=== PATIENT | male | born 1960 | race Caucasian/White ===

== ENCOUNTER 2024-01-17 05:42 | Inpatient (IN) | payer MEDICARE, OTHER ==
[~2024-01-17 05:42] MED LIST: TRANEXAMIC 1,000 MG/100ML-NACL 1,000 MG in SALINE 1 100ML.BAG IVPB PRN
[2024-01-17 06:45] LABS: Glucose,Whole Blood 118 mg/dL (70-110)
[2024-01-17] MEDS: DEXAMETHASONE SOD PHOSPHATE 4 MG/ML 1 ML VIAL IV ONE (06:54)
[2024-01-17] MEDS: MELOXICAM 7.5 MG TAB PO PRN (06:54)
[2024-01-17] MEDS: ONDANSETRON 4 MG/2 ML VIAL IVP ONE (06:54)
[2024-01-17] MEDS: LACTATED RINGERS 1,000 ML IV ONE ×3 (06:54→09:21)
[2024-01-17] MEDS: ACETAMINOPHEN TAB 500 MG TAB PO PRN (06:54)
[2024-01-17] MEDS: MIDAZOLAM 2 MG/2 ML VIAL IVP ONE (06:59)
[2024-01-17] MEDS ORDERED: HYDROmorphone 0.5 MG/0.5 ML SYRINGE IVP PRN ×2 (07:00→09:14)
[2024-01-17 07:18] LABS: INR 0.9 (<1.2); Partial Thromboplastin Time 22.2 sec (22.0-30.0); Prothrombin Time 10.2 sec (10.0-12.5)
[2024-01-17] MEDS ORDERED: PROPOFOL 10 MG/ML 20 ML VIAL IV ONE (07:22)
[2024-01-17] MEDS ORDERED: TRANEXAMIC 1,000 MG/100ML-NACL PREMIX BAG ONE (07:22)
[2024-01-17] MEDS ORDERED: ROPIVACAINE 5 MG/ML 30 ML VIAL ONE (07:22)
[2024-01-17] MEDS ORDERED: fentaNYL (PF) 50 MCG/ML 2 ML AMP ONE (07:22)
[2024-01-17] MEDS ORDERED: MIDAZOLAM 2 MG/2 ML VIAL ONE (07:22)
[2024-01-17] MEDS ORDERED: DEXAMETHASONE SOD PHOSPHATE 4 MG/ML 1 ML VIAL ONE (07:22)
[2024-01-17] MEDS: ceFAZolin 3 GM in SODIUM CHLORIDE 0.9% 100 ML IVPB PRN (07:26)
--- NOTE | 2024-01-17 07:47 | HP ---
HISTORY AND PHYSICAL ANTICIPATED DATE OF SURGERY: 01/17/2024. HISTORY OF PRESENT ILLNESS: Julio Daniel is a 63-year-old gentleman, seen with symptomatic left knee osteoarthritis. After having treatment options discussed, he elected to proceed with left total knee arthroplasty. Consent regarding the procedure was obtained. Preoperative cardiac clearance was provided. PAST MEDICAL HISTORY: Cardiovascular disease, hypertension, ewz-svpwoow-sqdiknskg diabetes. SURGICAL HISTORY: Appendectomy, cholecystectomy, herniorrhaphy. DAILY MEDICATIONS: Unknown. ALLERGIES: None. SOCIAL HISTORY: The patient denies current tobacco use. PHYSICAL EVALUATION OF THE LEFT KNEE: Range of motion is -3 to 100 degrees. Tenderness along the medial joint line. Crepitance along the medial patellofemoral compartments with range of motion. Pain with patellofemoral compression. Collateral ligaments are stable. Hip rotation is without pain. Distal neurovascular exam is intact. IMAGING STUDIES: Radiographs of the left knee revealed severe osteoarthritic changes. IMPRESSION: 1. Left knee osteoarthritis. 2. Hypertension. 3. Hyperlipidemia. 4. Ytz-mpfsmxk-ghlfymfmk diabetes. PLAN: Left total knee arthroplasty. MMODL / IJN: [id number] /
[2024-01-17] MEDS: ceFAZolin 1,000 MG in SODIUM CHLORIDE 0.9% 1,000 ML IRRIGATION ONE (07:54)
[2024-01-17] MEDS ORDERED: ONDANSETRON 4 MG/2 ML VIAL IVP PRN (09:14)
[2024-01-17] MEDS ORDERED: HYDROcodone/APAP 5-325MG 1 EACH TAB PO PRN (09:14)
[2024-01-17] MEDS ORDERED: NALOXONE 0.4 MG/ML 1 ML VIAL IV PRN (09:14)
--- NOTE | 2024-01-17 09:14 | P.OP ---
Date of Procedure: 01/17/24 Preoperative Diagnosis: Left knee osteoarthritis Postoperative Diagnosis: Left knee osteoarthritis Procedure(s) Performed: Left total knee arthroplasty Implants: 1. DePuy attune size 6 left cruciate retaining cemented femur 2. DePuy attune size 5 fixed-bearing cemented tibial baseplate 3. DePuy attune size 6 fixed-bearing cruciate retaining 5 mm polyethylene tibial insert 4. DePuy attune 38 mm all polyethylene cemented patella Anesthesia: regional (Adductor canal catheter, iPAQ block), spinal Surgeon: Vance Weinstein Higher Level Teaching Assistant #1: Seth Sanchez Estimated Blood Loss (ml): 40 Pathology: none sent Condition: stable Disposition: PACU Indications for Procedure: 63-year-old gentleman seen with symptomatic left knee osteoarthritis. After having treatment options discussed, he elected to proceed with total knee art hroplasty. Operative Findings: See description of procedure Description of Procedure: Patient was taken to the operative suite after having an adductor canal catheter placed by the department of anesthesia. Patient underwent a spinal anesthetic by the department of anesthesia. Patient was given preoperative IV intake antibiotics and TXA. A well-padded tourniquet was placed about the left lower extremity. The lower extremity was then prepped and draped in the normal sterile orthopedic fashion. The extremity was elevated, a tourniquet was insufflated to 300. A standard anterior incision was made sharply through skin. Dissection was taken down through the subcutaneous soft tissues down to the extensor mechanism. A medial arthrotomy was performed, patella was everted and knee was flexed. There was advanced osteoarthritis noted. I introduced my distal intramedullary femoral drill. I then introduced the distal femoral cutting jig. Gt JESSICA secured the cutting jig with 2 pins. I held retractors in position while Gt JESSICA performed the distal femoral resection through the guide area we now removed her distal femoral cutting guide. We now placed our 4-in-1 femoral cutting block and positioned and it was secured with 2 pins by Gt JESSICA while I held the block in position. The distal femoral finishing was now completed. A proximal tibial cutting guide was positioned. I held the guide in the appropriate position with both hands well Gt JESSICA inserted stabilizing pins into the guide. Proximal tibial cut was made. We now placed a trial femoral component into position, along with an appropriate size tibial tray and insert. We now took the knee through range of motion and had full extension good flexion and good overall soft tissue balance noted. The patella was everted and stabilized with 2 towel clips held by Gt JESSCIA while I performed a flush with patellar quad tendon utilizing a fresh sawblade. We templated the patella, appropriate drill holes were made. An appropriate trial patella was positioned, knee was taken through full range of motion with the patella tracking very nicely. The trial patella was removed. Drill holes were made through the femoral component. All trial components were removed after marking off the appropriate rotation of the tibia. Retractors we re now positioned along the proximal tibia. An appropriate keel punch was made with the appropriate size tibial guide by myself on Gt JESSICA assisted by holding retractors. At this point appropriate size implants were chosen and opened. The joint was irrigated copiously with pulse lavage mechanical irrigation. The wound was irrigated with pulse lavage mechanical irrigation. We mixed antibiotic methylmethacrylate. We placed the knee into flexion. We placed multiple retractors assisted by Gt JESSICA to expose the proximal tibia. Once the methyl methacrylate was ready, the tibial component was cemented into place removing any excess methylmethacrylate form by both myself and Gt JESSICA. The femoral component was cemented into place removing the removing any excess methylmethacrylate performed by both myself and Gt JESSICA. We then inserted the appropriate size polyethylene tibial insert. We made sure that it was locked into position. We took the knee into full extension, and then back in a flexion making sure we had removed any excess methylmethacrylate. The patellar component was then cemented down and secured with clamp. Excess methylmethacrylate removed. We kept the knee in full extension, patellar clamp in position until methylmethacrylate had hardened. Once it had hardened the patellar clamp was removed. The knee was taken through full range of motion. The patella tracked nicely. There was good soft tissue balancing. The tourniquet was now released. Additional hemostasis was achieved via electrocautery. A second gram of TXA was given. The wound again was irrigated with pulse lavage mechanical irrigation. The extensor mechanism was repaired with Ethibond suture. We checked the repair with range of motion and it was stable. The subcutaneous soft tissues were repaired with Vicryl in layers. The skin was approximated with pernio/Dermabond. Sterile dressings were applied followed by loose web roll and William bandage. The patient was transferred to a bed, and taken to recovery in stable and satisfactory condition. Gt JESSICA assisted with this complex procedure.
[2024-01-17] MEDS: ROPIVACAINE 1,100 MG, SODIUM CHLORIDE 0.9% 500 ML 330 ML, EMPTY PAIN BALL 1 EACH MISCELLANE PRN (10:03)
[2024-01-17 10:16] LABS: Glucose,Whole Blood 146 mg/dL (70-110)
--- NOTE | 2024-01-17 10:29 | XR ---
EXAMINATION TYPE: XR knee limited LT DATE OF EXAM: 01/17/2024 10:23 AM CLINICAL INDICATION:Male, 63 years old with history of Evaluation for Postop abnormality and alignmen t COMPARISON: None. TECHNIQUE: XR knee limited LT; examined in Frontal, lateral projections. FINDINGS: Status post total knee arthroplasty changes with hardware in appropriate alignment and in tact. No evidence of fracture. Subcutaneous lucencies and lucencies within the joint consistent with surgical changes. IMPRESSION: Status post total knee arthroplasty changes with hardware intact and appropriate alignment. No fractu res identified.
[2024-01-17] MEDS ORDERED: ALBUTEROL NEBULIZED 2.5 MG/3 ML INHALATION PRN (12:17)
[2024-01-17] MEDS ORDERED: DEXTROSE 50% SYRINGE 50 ML IVP PRN ×2 (12:18)
[2024-01-17] MEDS: HYDROcodone/APAP 7.5-325MG 1 EACH TAB PO PRN (12:25)
[2024-01-17] MEDS: HYDROmorphone 0.5 MG/0.5 ML SYRINGE IVP PRN (13:32)
[2024-01-17] MEDS: INSULIN ASPART (NovoLOG) 100 UNIT/ML VIAL SQ SCH (13:47)
[2024-01-17] MEDS: LACTATED RINGERS 1,000 ML IV SCH ×2 (13:47→15:49)
--- NOTE | 2024-01-17 14:31 | P.CONS ---
History of Present Illness - Reason for Consult Consult date: 01/17/24 - History of Present Illness Patient is a 63-year-old male with history of hypertension, dyslipidemia, depression, type 2 diabetes presenting for elective left knee arthroplasty. [facility] physicians has been consulted for medical management. Patient currently denies any chest pain, shortness of breath, abdominal pain, nausea, vomiting, urinary or bowel complaints. Pertinent positives and negatives as discussed in HPI, a complete review of systems was performed and all other systems are negative. Patient seen and examined at bedside. Vital signs reviewed General: nontoxic, no distress, appears at stated age, morbidly obese Derm: warm, dry, left knee dressing clean, dry, intact Head: atraumatic, normocephalic, symmetric Eyes: EOMI, no lid lag, anicteric sclera, pupils equal round reactive to light ENT: Nose and ears atraumatic Neck: No thyromegaly, supple Mouth: no lip lesion, mucus membranes moist Cardiovascular: S1S2 reg, no murmur, no edema Lungs: clear to auscultation bilateral, no rhonchi, no rales, no wheeze, no accessory muscle use Abdominal: soft, nontender to palpation, no guarding, no appreciable organomegaly Ext: no gross muscle atrophy, muscle strength muscle strength 5 out of 5 in all 4 extremities, no contractures Neuro: CN II-XII grossly intact Psych: Alert, oriented, appropriate affect Assessment/Plan: Hypertension-continue home metoprolol 50 mg daily, valsartan 320 mg daily Dyslipidemia-continue home atorvastatin 20 mg nightly Depression-continue home Lexapro 20 mg daily, Abilify 2 mg nightly, Lamictal 150 twice daily Status post left total knee arthroplasty -Pain control with oral [place] as needed, IV Dilaudid as needed, ropivacaine for breakthrough pain as needed, monitor for sedation -Lovenox 30 mg SQ every 12 hours for DVT prophylaxis -Senna 8.6 mg twice daily ordered -PT/OT -CBC and BMP pending for tomorrow Thank you for allowing us to participate in the care of this pleasant patient. Do not hesitate to contact us with questions. Someone can be reached from the [facility] hospitalist group all hours of the day at [phone] or via [place]. Past Medical History Past Medical History: Diabetes Mellitus, Hyperlipidemia, Hypertension, Memory Impairment, Osteoarthritis (OA), Sleep Apnea/CPAP/BIPAP Additional Past Medical History / Comment(s): uses CPAP, SOB w/activity @times, daughter thinks weight related, doesn't have any respiratory dx., daughter states he is getting very forgetful, his mom had alzheimer's History of Any Multi-Drug Resistant Organisms: None Reported Past Surgical History: Appendectomy, Cholecystectomy, Hernia Repair Past Anesthesia/Blood Transfusion Reactions: No Reported Reaction Past Psychological History: Anxiety, Depression, PTSD Smoking Status: Never smoker Past Alcohol Use History: Occasional Additional Past Alcohol Use History / Comment(s): doesn't really drink anymore Past Drug Use History: None Reported - Past Family History Father Family Medical History: Cancer Additional Family Medical History / Comment(s): PROSTATE Mother Family Medical History: Coronary Artery Disease (CAD) Additional Family Medical History / Comment(s): HAD OPEN HEART SX Medications and Allergies Home Medications Medication Instructions Recorded Confirmed Type ARIPiprazole [Abilify] 2 mg PO HS 01/14/24 01/14/24 History Albuterol Inhaler [Ventolin Hfa 1 - 2 puff INHALATION Q6H PRN 01/14/24 01/14/24 History Inhaler] Atorvastatin [Lipitor] 20 mg PO HS 01/14/24 01/14/24 History Diclofenac Sodium [Voltaren] 75 mg PO DAILY 01/14/24 01/14/24 History Escitalopram [Lexapro] 20 mg PO DAILY 01/14/24 01/14/24 History Loratadine [Claritin] 10 mg PO DAILY 01/14/24 01/14/24 History Meloxicam [Mobic] 15 mg PO DAILY 01/14/24 01/14/24 History Metoprolol Succinate (ER) [Toprol 50 mg PO DAILY 01/14/24 01/14/24 History Xl] Valsartan 320 mg PO DAILY 01/14/24 01/14/24 History lamoTRIgine [LaMICtal] 150 mg PO BID 01/14/24 01/14/24 History metFORMIN HCL ER [Glucophage XR] 500 mg PO DAILY 01/14/24 01/14/24 History Allergies Allergy/AdvReac Type Severity Reaction Status Date / Time No Known Allergies Allergy Verified 01/14/24 08:27 Physical Exam Vitals: Vital Signs Temp Pulse Pulse Resp BP BP Pulse Ox 01/17/24 12:14 98.2 F 68 16 126/72 95 01/17/24 11:45 63 16 126/76 92 L 01/17/24 11:30 66 16 128/76 96 01/17/24 11:00 63 16 136/79 96 01/17/24 10:30 66 16 136/75 96 01/17/24 10:07 68 16 137/75 96 01/17/24 09:52 70 16 135/73 96 01/17/24 09:37 97.1 F L 71 16 140/84 96 01/17/24 07:23 69 16 152/83 99 01/17/24 06:24 97.2 F L 69 18 160/80 94 L Intake and Output 01/16/24 01/17/24 01/17/24 22:59 06:59 14:59 Intake Total 100 1001 Output Total 40 Balance 100 961 Intake: IV 100 1001 Output: Estimated Blood Loss 40 Other: Weight 135.7 kg 135.7 kg Results Labs: Abnormal Lab Results - Last 24 Hours (Table) 01/17/24 01/17/24 Range/Units 06:44 10:13 POC Glucose (mg/dL) 118 H 146 H (70-110) mg/dL
[2024-01-17] MEDS: ceFAZolin 3 GM in SODIUM CHLORIDE 0.9% 100 ML IVPB SCH (15:51)
[2024-01-17] MEDS: HYDROmorphone 1 MG/ML 1 ML SYRINGE IVP PRN (16:10)
[2024-01-17 16:26] LABS: Glucose,Whole Blood 154 mg/dL (70-110)
[2024-01-17 20:20] LABS: Glucose,Whole Blood 205 mg/dL (70-110)
[2024-01-17] MEDS: SENNOSIDES 8.6 MG TAB PO SCH (21:09)
[2024-01-17] MEDS: lamoTRIgine 100 MG TAB PO SCH (21:09)
[2024-01-17] MEDS: ENOXAPARIN 30 MG/0.3 ML SYRINGE SQ SCH (21:10)
[2024-01-17] MEDS: ATORVASTATIN 20 MG TAB PO SCH (21:10)
[2024-01-17] MEDS: ARIPiprazole 2 MG TAB PO SCH (21:10)
[2024-01-18 05:51] LABS: Glucose,Whole Blood 184 mg/dL (70-110)
--- NOTE | 2024-01-18 07:13 | P.PN ---
Progress Note - Text Progress Note Date: 01/18/24 patient was seen and evaluated at bedside. Status post postoperative day 1 for left total knee arthroplasty patient had adductor canal catheter for postop pain control. Patient rated pain at rest 2-3 out of 10 in severity. Patient describes pain is aching, throbbing type on the sides of the knee and back of the knee. Patient started walking with support. With activity patient pain levels are 5-6 out of 10 in severity. With the help of oral pain medications pain levels are tolerable. Patient denied any weakness/ numbness in lower extremities. patient denied any fever, pain over the catheter site. Physical exam: Patient vital signs stable Patient is alert awake oriented 3 responding to all questions appropriately Examination of the catheter site showed dressing intact, no leaking fluid around the catheter, no redness, no tenderness over the catheter insertion area. plan: status post postoperative day 1 for Left total knee arthroplasty with adductor canal catheter for pain control. Patient was discussed to continue the medication at the rate of 8 mL per hour until the pump is completely empty and instructed the patient how to discontinue the catheter.
[2024-01-18] MEDS: VALSARTAN 160 MG TAB PO SCH (07:59)
[2024-01-18] MEDS: METOPROLOL SUCCINATE (ER) 50 MG TAB.ER.24H PO SCH (07:59)
[2024-01-18] MEDS: ESCITALOPRAM 20 MG TAB PO SCH (07:59)
[2024-01-18] MEDS: LORATADINE 10 MG TAB PO SCH (08:00)
[2024-01-18 08:44] LABS: Basophils # (A) 0.02 X 10*3/uL (0.00-0.10); Basophils % (A) 0.2 %; Eosinophils # (A) 0 X 10*3/uL (0.04-0.35); Eosinophils % (A) 0 %; HCT 37.6 % (39.6-50.0); HGB 12.4 g/dL (13.0-17.0); Lymphocytes # (A) 1.54 X 10*3/uL (0.90-5.00); Lymphocytes % (A) 12.1 %; MCV 88.1 FL (80.0-97.0); Mean Platelet Volume 10.5 FL (9.5-12.2); Monocytes # (A) 1.03 X 10*3/uL (0.20-1.00); Monocytes % (A) 8.1 %; NRBC Per 100 WBC 0 X 10*3/uL (0.00-0.01); Neutrophils # (A) 10.12 X 10*3/uL (1.80-7.70); Neutrophils % (A) 79.1 %; Platelet Count 180 X 10*3/uL (140-440); RBC 4.27 X 10*6/uL (4.40-5.60); RDW 14.2 % (11.5-14.5); WBC 12.78 X 10*3/uL (4.50-10.00)
--- NOTE | 2024-01-18 08:54 | P.ANPRN ---
Procedure Note - Anesthesia - Nerve Block Performed Left Adductor Canal Infusion Time Out Performed: Yes Date of Procedure: 01/17/24 Procedure Start Time: 06:59 Procedure Stop Time: 07:10 Location of Patient: PreOp Indication: Acute Post-Operative Pain, Requested by Surgeon Sedation Type: Sedate with meaningful contact maintained Preparation: Sterile Prep Position: Supine Catheter: Indwelling Needle Types: Pajunk Needle Gauge: 21 Ultrasound used to visualize needle placement: Yes Ultrasound used to observe medication spread: Yes Blood Aspirated: No Pain Paresthesia on Injection Noted: No Resistance on Injection: Normal Image Stored and Saved: Yes Events: Uneventful and Well Tolerated (Ropivacaine 0.5% 20 cc plus dexamethasone 4 mg)
--- NOTE | 2024-01-18 08:56 | P.ANPRN ---
Procedure Note - Anesthesia - Nerve Block Performed Left iPack Single Time Out Performed: Yes Date of Procedure: 01/17/24 Procedure Start Time: 07:11 Procedure Stop Time: 07:14 Location of Patient: PreOp Indication: Acute Post-Operative Pain, Requested by Surgeon Sedation Type: Sedate with meaningful contact maintained Preparation: Sterile Prep Position: Supine Needle Types: Pajunk Needle Gauge: 21 Ultrasound used to visualize needle placement: Yes Ultrasound used to observe medication spread: Yes Blood Aspirated: No Pain Paresthesia on Injection Noted: No Resistance on Injection: Normal Image Stored and Saved: Yes Events: Uneventful and Well Tolerated (Ropivacaine 0.5% 20 cc plus dexamethasone 4 mg)
[2024-01-18 09:21] LABS: Blood Urea Nitrogen 20.4 mg/dL (9.0-27.0); Calcium 8.4 mg/dL (8.7-10.3); Carbon Dioxide 24.8 mmol/L (21.6-31.8); Chloride 105 mmol/L (96-109); Glucose 177 mg/dL (70-110); Potassium 3.9 mmol/L (3.5-5.5); Sodium 140 mmol/L (135-145)
--- NOTE | 2024-01-18 10:45 | P.PN ---
Subjective Progress Note Date: 01/18/24 Principal diagnosis: Left knee osteoarthritis Patient was seen at bedside this morning sitting up in chair performing exercises with dressing present to the left knee. Patient says he did work with therapy this morning and was able to make it to the chair next to the bed. Patient says he was not able to walk out of the hallway and do any stairs with therapy patient says he is hoping to go to [facility] for rehab upon discharge from the hospital. Patient says he has urinated since surgery yesterday. Patient says he has not had a bowel movement yet, however, patient says he has been passing gas. Patient states his knee does feel very stiff this morning. Patient denies chest pain, fever, shortness of breath, nausea, vomiting, change in vision, loss of bowel/bladder control. Objective - Vital Signs Vital signs: Vital Signs Temp 98.0 F 01/18/24 07:53 Pulse 81 01/18/24 07:53 Resp 14 01/18/24 07:53 BP 147/83 01/18/24 07:53 Pulse Ox 92 L 01/18/24 07:53 FiO2 Intake & Output 01/17/24 01/18/24 01/18/24 18:59 06:59 18:59 Intake Total 2061 Output Total 340 800 Balance 1721 -800 Weight 135.7 kg Intake: IV 1001 Intake, IV Titration 700 Amount Lactated Ringers 1,000 ml 600 @ 100 mls/hr IV .Q10H [facility] Rx#:[id number] ceFAZolin 3 gm In Sodium 100 Chloride 0.9% 100 ml @ 200 mls/hr IVPB ONCE PRN Rx#:[id number] Oral 360 Output: Urine 300 800 Estimated Blood Loss 40 Other: Voiding Method Urinal - Exam Left knee: Incision is clean, dry, and intact. The silver foam dressing is in good condition. There is minimal soft tissue swelling and ecchymosis surrounding the medial and lateral aspects of the incision. Calf is soft, no tenderness with palpation. Plantar flexion, dorsiflexion, EHL, FHL are intact. Sensory exam to light touch throughout the extremity is intact, dorsal pedis pulses 2+. - Labs CBC & Chem 7: 01/18/24 05:10 01/18/24 05:10 Labs: Abnormal Lab Results - Last 24 Hours (Table) 01/17/24 01/17/24 01/18/24 Range/Units 16:25 20:18 05:10 WBC (4.50-10.00) X 10*3/uL RBC (4.40-5.60) X 10*6/uL Hgb (13.0-17.0) g/dL Hct (39.6-50.0) % Immature Gran # (0.00-0.04) X 10*3/uL Neutrophils # (1.80-7.70) X 10*3/uL Monocytes # (0.20-1.00) X 10*3/uL Eosinophils # (0.04-0.35) X 10*3/uL BUN/Creatinine Ratio (12.00-20.00) Ratio Glucose (70-110) mg/dL POC Glucose (mg/dL) 154 H 205 H (70-110) mg/dL Hemoglobin A1c 6.5 H (<=6.0) % Calcium (8.7-10.3) mg/dL 01/18/24 01/18/24 01/18/24 Range/Units 05:10 05:10 05:49 WBC 12.78 H (4.50-10.00) X 10*3/uL RBC 4.27 L (4.40-5.60) X 10*6/uL Hgb 12.4 L (13.0-17.0) g/dL Hct 37.6 L (39.6-50.0) % Immature Gran # 0.07 H (0.00-0.04) X 10*3/uL Neutrophils # 10.12 H (1.80-7.70) X 10*3/uL Monocytes # 1.03 H (0.20-1.00) X 10*3/uL Eosinophils # 0 L (0.04-0.35) X 10*3/uL BUN/Creatinine Ratio 20.40 H (12.00-20.00) Ratio Glucose 177 H (70-110) mg/dL POC Glucose (mg/dL) 184 H (70-110) mg/dL Hemoglobin A1c (<=6.0) % Calcium 8.4 L (8.7-10.3) mg/dL Assessment and Plan Assessment: 1. Left knee osteoarthritis -Postop day 1 status post left total knee arthroplasty Plan: 1. Left knee osteoarthritis -left total knee arthroplasty performed yesterday, 01/17/2024. Patient was able to get to the chair next to the bed with therapy. manager proposal working on placement to [facility] for rehab. manager proposal submitted for auth. We will continue to follow patient during stay in hospital. Plan for discharge to rehab tomorrow versus . 2. Appreciate medical management 3. Pain management -[place] 4. DVT prophylaxis -Lovenox in hospital 5. GI prophylaxis - senna 6. PT/OT -weightbearing as tolerated with walker and assistance as needed 7. Encourage incentive spirometer use 8. Discharge planning - Plan for discharge to rehab tomorrow versus . Time with Patient: Less than 30
[2024-01-18 11:26] LABS: Glucose,Whole Blood 145 mg/dL (70-110)
--- NOTE | 2024-01-18 11:42 | P.PN ---
Subjective Progress Note Date: 01/18/24 Subjective: Patient seen and examined at bedside. No acute events overnight. Patient having difficulty ambulating Pertinent positives and negatives as discussed above, a complete review of sy stems was performed and all other systems are negative. Vitals Signs Reviewed. General: Nontoxic, no distress, appears at stated age Derm: Warm, dry, dressing clean, dry, intact Head: Atraumatic, normocephalic, symmetric Eyes: EOMI, no lid lag, anicteric sclera Mouth: No lip lesion, mucus membranes moist Cardiovascular: S1S2 reg, no murmur Lungs: CTA bilateral, no rhonchi, no rales, no accessory muscle use Abdominal: Soft, nontender to palpation, no guarding, no appreciable organomegaly Ext: No gross muscle atrophy, no edema, no contractures Neuro: CN II-XI grossly intact, no focal neuro deficits Psych: Alert, oriented, appropriate affect Data Reviewed Today: Pertinent Labs: WBC 12.78, hemoglobin 12.4, potassium 3.9, creatinine 1.0, blood sugars range between 1 45-2 05, A1c 6.5 Imaging: No new imaging Assessment and Plan: Hypertension-continue home metoprolol 50 mg daily, valsartan 320 mg daily Dyslipidemia-continue home atorvastatin 20 mg nightly Depression-continue home Lexapro 20 mg daily, Abilify 2 mg nightly, Lamictal 150 twice daily Type 2 diabetes - on sliding scale insulin, monitor for hypoglycemia Status post left total knee arthroplasty -Pain control with oral [place] as needed, IV Dilaudid as needed, ropivacaine for breakthrough pain as needed, monitor for sedation -Lovenox 30 mg SQ every 12 hours for DVT prophylaxis -Senna 8.6 mg twice daily -PT/OT -Ortho surgery note reviewed, likely discharge to rehab tomorrow or Thank you for allowing us to participate in the care of this pleasant patient. Do not hesitate to contact us with questions. Someone can be reached from the [facility] hospitalist group all hours of the day at [phone] or via perfect serve. Objective - Vital Signs Vital signs: Vital Signs Temp 98.0 F 01/18/24 07:53 Pulse 81 01/18/24 07:53 Resp 14 01/18/24 07:53 BP 147/83 01/18/24 07:53 Pulse Ox 92 L 01/18/24 07:53 FiO2 Intake & Output 01/17/24 01/18/24 01/18/24 18:59 06:59 18:59 Intake Total 2061 Output Total 340 800 Balance 1721 -800 Weight 135.7 kg Intake: IV 1001 Intake, IV Titration 700 Amount Lactated Ringers 1,000 ml 600 @ 100 mls/hr IV .Q10H [facility] Rx#:[id number] ceFAZolin 3 gm In Sodium 100 Chloride 0.9% 100 ml @ 200 mls/hr IVPB ONCE PRN Rx#:[id number] Oral 360 Output: Urine 300 800 Estimated Blood Loss 40 Other: Voiding Method Urinal - Labs CBC & Chem 7: 01/18/24 05:10 01/18/24 05:10 Labs: Abnormal Lab Results - Last 24 Hours (Table) 01/17/24 01/17/24 01/18/24 Range/Units 16:25 20:18 05:10 WBC (4.50-10.00) X 10*3/uL RBC (4.40-5.60) X 10*6/uL Hgb (13.0-17.0) g/dL Hct (39.6-50.0) % Immature Gran # (0.00-0.04) X 10*3/uL Neutrophils # (1.80-7.70) X 10*3/uL Monocytes # (0.20-1.00) X 10*3/uL Eosinophils # (0.04-0.35) X 10*3/uL BUN/Creatinine Ratio (12.00-20.00) Ratio Glucose (70-110) mg/dL POC Glucose (mg/dL) 154 H 205 H (70-110) mg/dL Hemoglobin A1c 6.5 H (<=6.0) % Calcium (8.7-10.3) mg/dL 01/18/24 01/18/24 01/18/24 Range/Units 05:10 05:10 05:49 WBC 12.78 H (4.50-10.00) X 10*3/uL RBC 4.27 L (4.40-5.60) X 10*6/uL Hgb 12.4 L (13.0-17.0) g/dL Hct 37.6 L (39.6-50.0) % Immature Gran # 0.07 H (0.00-0.04) X 10*3/uL Neutrophils # 10.12 H (1.80-7.70) X 10*3/uL Monocytes # 1.03 H (0.20-1.00) X 10*3/uL Eosinophils # 0 L (0.04-0.35) X 10*3/uL BUN/Creatinine Ratio 20.40 H (12.00-20.00) Ratio Glucose 177 H (70-110) mg/dL POC Glucose (mg/dL) 184 H (70-110) mg/dL Hemoglobin A1c (<=6.0) % Calcium 8.4 L (8.7-10.3) mg/dL 01/18/24 Range/Units 11:25 WBC (4.50-10.00) X 10*3/uL RBC (4.40-5.60) X 10*6/uL Hgb (13.0-17.0) g/dL Hct (39.6-50.0) % Immature Gran # (0.00-0.04) X 10*3/uL Neutrophils # (1.80-7.70) X 10*3/uL Monocytes # (0.20-1.00) X 10*3/uL Eosinophils # (0.04-0.35) X 10*3/uL BUN/Creatinine Ratio (12.00-20.00) Ratio Glucose (70-110) mg/dL POC Glucose (mg/dL) 145 H (70-110) mg/dL Hemoglobin A1c (<=6.0) % Calcium (8.7-10.3) mg/dL
[2024-01-18] MEDS: MULTIVITAMINS, THERA 1 EACH TAB PO SCH (11:45)
[2024-01-18 16:57] LABS: Glucose,Whole Blood 164 mg/dL (70-110)
[2024-01-18 20:57] LABS: Glucose,Whole Blood 149 mg/dL (70-110)
[2024-01-19 06:01] LABS: Glucose,Whole Blood 173 mg/dL (70-110)
[2024-01-19 08:17] VITALS: BP 137/76; PULSE 82; RESP 17; TEMP 98.7
--- NOTE | 2024-01-19 11:29 | P.PN ---
Subjective Progress Note Date: 01/19/24 Principal diagnosis: Status post left total knee arthroplasty Patient evaluated at bedside today, he is resting in his hospital bed. He did do a little bit better he stated with physical therapy today. He feels that the pain is easing up a little bit. Authorization has been obtained for discharge to subacute rehab. He has no chest pain or shortness of breath at this time. Objective - Vital Signs Vital signs: Vital Signs Temp 98.7 F 01/19/24 07:12 Pulse 82 01/19/24 07:12 Resp 17 01/19/24 07:12 BP 137/76 01/19/24 07:12 Pulse Ox 94 L 01/19/24 07:12 FiO2 Intake & Output 01/18/24 01/19/24 01/19/24 18:59 06:59 18:59 Intake Total 720 Output Total 1700 450 Balance -980 -450 Intake: Oral 720 Output: Urine 1700 450 Other: Voiding Method Urinal # Voids 2 1 - Exam Left lower extremity: Incision is clean, dry, and intact. The foam dressing is in good condition. There is minimal soft tissue swelling and ecchymosis surrounding the medial and lateral aspects of the incision. Calf is soft, no tenderness with palpation. Plantar flexion, dorsiflexion, EHL, FHL are intact. Sensory exam to light touch throughout the extremity is intact, dorsal pedis pulses 2+. - Labs CBC & Chem 7: 01/18/24 05:10 01/18/24 05:10 Labs: Abnormal Lab Results - Last 24 Hours (Table) 01/18/24 01/18/24 01/19/24 Range/Units 16:55 20:55 05:58 POC Glucose (mg/dL) 164 H 149 H 173 H (70-110) mg/dL Assessment and Plan Assessment: Postoperative day #2 status post left total knee arthroplasty Plan: Pain control, plan for discharge on [place] 7.5 mg / 325 mg GI and DVT prophylaxis, plan for discharge on Lovenox 30 mg SQ every 12 hours for 12 days Stool softeners will also be prescribed to help prevent constipation Discussed with nursing to discontinue On-Q pain catheter prior to discharge Wound care instructions were discussed with patient, this to include when to remove bandage along with showering instructions Weight-bear as tolerated, recommend the use of a walker Medical recommendations appreciated Discharge planning: Stable for discharge to subacute rehab today Time with Patient: Less than 30
--- NOTE | 2024-01-19 11:38 | P.DS ---
Providers Date of admission: 01/17/24 09:14 Expected date of discharge: 01/19/24 Attending physician: Vance Weinstein Consults: 01/17/24 09:14 Consult Physician Routine Consulting Provider: Sherlyn Reveles Consult Reason/Comments: Medical management Do you want consulting provider notified?: Yes Primary care physician: Stated None Hospital Course: Date of admission: 01/17/2024 Date of discharge: 01/19/2024 Admission diagnosis: Status post left total knee arthroplasty Discharge diagnosis: Same Attending physician: Dr. Weinstein Surgical procedures: Left total knee arthroplasty Brief history: Patient is a 63-year-old male with a history of progressive primary left knee osteoarthritis. At this point patient has failed conservative treatment measures and has opted to proceed with a elective left total knee arthroplasty. Hospital course: Details of patient's surgery can be found in operative report. Patient tolerated the procedure well and was subsequently transported to orthopedic floor. Patient's orthopeidc and medical care was provided daily. Patient had daily laboratory tests performed for evaluation of overall blood counts. Patient had daily physical therapy to include strengthening range of motion as well as education with walker ambulation. Patient was treated with Lovenox for their postoperative DVT prophylaxis during their inpatient stay. Patient was noted to have a relatively uneventful postoperative course. Patient reported satisfactory pain control with oral pain medications by postoperative day 1. Patient showed satisfactory progress with physical therapy. Patient moved steadily through the program and had no difficulty meeting the goals by postoperative day 2. Given patient's otherwise satisfactory course and having met physical therapy goals, plan is to discharge patient to subacute rehab on postoperative day 2. Discharge condition/disposition: Patient will be discharged home in stable condition. Discharge medications: Instructions are given on resumption of patient's normal daily medications per primary care recommendation, in addition patient will be prescribed [place] 7.5 mg / 325 mg, Lovenox 30 mg, senna S. Discharge instructions: 1. Wound care and infection precautions, keep incision dry and covered while showering, no lotions, creams, moisturizers. No soaking, tubs, pools, hottubs. Do not scrub over the incision. 2. Weight-bear as tolerated with walker / cane until follow-up. 3. Ice and elevate when necessary. Do not exceed 20 minutes per hour with ice pack. 4. Utilize compression sleeve until seen at first follow up appointment. 5. Visiting nursing care. 6. Home physical therapy including home CPM. 7. Pain meds and anticoagulants per prescription. 8. Pain medication has potential to cause constipation. Increase oral fluid and fiber intake. Contact primary care provider if you have not had a bowel movement within 48 hours after discharge 9. No anti-inflammatory medication until discussed at first post operative visit, this including Motrin, Aleve, Mobic, Diclofenac. 10. Follow up in office at 2 weeks postop with Gt Sanchez PA-C/Chad Pittman 11. Follow up with your primary care doctor 7-10 days after discharge. 12. Contact [facility] with any questions, . Procedures: Left total knee arthroplasty Patient Condition at Discharge: Good Plan - Discharge Summary Discharge Rx Participant: No New Discharge Prescriptions: New Enoxaparin [Lovenox] 30 mg SQ Q12H #24 each HYDROcodone/APAP 7.5-325MG [[place] 7.5] 1 each PO Q6HR PRN #28 tab PRN Reason: Pain Sennosides/Docusate Sodium [Senna-S 8.6-50 mg Tablet] 2 each PO DAILY PRN #30 tablet PRN Reason: Constipation Continue ARIPiprazole [Abilify] 2 mg PO HS Atorvastatin [Lipitor] 20 mg PO HS Albuterol Inhaler [Ventolin Hfa Inhaler] 1 - 2 puff INHALATION Q6H PRN PRN Reason: Shortness Of Breath metFORMIN HCL ER [Glucophage XR] 500 mg PO DAILY lamoTRIgine [LaMICtal] 150 mg PO BID Valsartan 320 mg PO DAILY Metoprolol Succinate (ER) [Toprol XL] 50 mg PO DAILY Loratadine [Claritin] 10 mg PO DAILY Escitalopram [Lexapro] 20 mg PO DAILY No Action Diclofenac Sodium [Voltaren] 75 mg PO DAILY Meloxicam [Mobic] 15 mg PO DAILY Discharge Medication List ARIPiprazole [Abilify] 2 mg PO HS 01/14/24 [History] Albuterol Inhaler [Ventolin Hfa Inhaler] 1 - 2 puff INHALATION Q6H PRN 01/14/24 [History] Atorvastatin [Lipitor] 20 mg PO HS 01/14/24 [History] Diclofenac Sodium [Voltaren] 75 mg PO DAILY 01/14/24 [History] Escitalopram [Lexapro] 20 mg PO DAILY 01/14/24 [History] Loratadine [Claritin] 10 mg PO DAILY 01/14/24 [History] Meloxicam [Mobic] 15 mg PO DAILY 01/14/24 [History] Metoprolol Succinate (ER) [Toprol XL] 50 mg PO DAILY 01/14/24 [History] Valsartan 320 mg PO DAILY 01/14/24 [History] lamoTRIgine [LaMICtal] 150 mg PO BID 01/14/24 [History] metFORMIN HCL ER [Glucophage XR] 500 mg PO DAILY 01/14/24 [History] Enoxaparin [Lovenox] 30 mg SQ Q12H #24 each 01/19/24 [Rx] HYDROcodone/APAP 7.5-325MG [[place] 7.5] 1 each PO Q6HR PRN #28 tab 01/19/24 [Rx] Sennosides/Docusate Sodium [Senna-S 8.6-50 mg Tablet] 2 each PO DAILY PRN #30 tablet 01/19/24 [Rx] Follow up Appointment(s)/Referral(s): Seth Sanchez PAC [PHYS[facility] [employer]] - 02/01/24 2:20 pm Patient Instructions/Handouts: Knee Replacement (DC), Knee Replacement (GEN) Activity/Diet/Wound Care/Special Instructions: Orthopedic Discharge Instructions: 1. Wound care and infection precautions, keep incision dry and covered while showering, no lotions, creams, moisturizers. No soaking, pools, hot tubs. Do not scrub over incision. 2. Weight-bear as tolerated with walker / cane until follow-up. 3. Ice and elevate when necessary. Do not exceed 20 minutes per hour with ice pack. 4. Utilize compression sleeve until seen at first follow up appointment. 5. Pain meds and anticoagulants per prescription. 6. Pain medication has potential to cause constipation. Increase oral fluid and fiber intake. Contact primary care provider if you have not had a bowel movement within 48 hours after discharge. 7. No anti-inflammatory medication until discussed at first post operative visit, this including Motrin, Aleve, Mobic, Diclofenac. 8. Follow up in office at 2 weeks postop with Gt Sanchez PA-C / Chad Cai PA-C 9. Follow up with your primary care doctor 7-10 days after discharge. 10. Contact [facility] with any questions, . Keep incision clean, dry, intact. While showering, cover dressing with Saran wrap. Keep dressing on until 01/24/2024. Once dressing is removed, it is okay to shower directly over incision. Discharge Disposition: TRANSFER TO SNF/ECF
[2024-01-19 11:43] LABS: Glucose,Whole Blood 201 mg/dL (70-110)
--- NOTE | 2024-01-19 13:12 | P.PN ---
Subjective Progress Note Date: 01/19/24 Subjective: Patient seen and examined at bedside. No acute events overnight. Pertinent positives and negatives as discussed above, a complete review of systems was performed and all other systems are negative. Vitals Signs Reviewed. General: Nontoxic, no distress, appears at stated age Derm: Warm, dry, dressing clean, dry, intact Head: Atraumatic, normocephalic, symmetric Eyes: EOMI, no lid lag, anicteric sclera Mouth: No lip lesion, mucus membranes moist Cardiovascular: S1S2 reg, no murmur Lungs: CTA bilateral, no rhonchi, no rales, no accessory muscle use Abdominal: Soft, nontender to palpation, no guarding, no appreciable organomegaly Ext: No gross muscle atrophy, no edema, no contractures Neuro: CN II-XI grossly intact, no focal neuro deficits Psych: Alert, oriented, appropriate affect Data Reviewed Today: Pertinent Labs: Blood sugars range between 1 49-2 01 Imaging: No new imaging Assessment and Plan: Hypertension-continue home metoprolol 50 mg daily, valsartan 320 mg daily Dyslipidemia-continue home atorvastatin 20 mg nightly Depression-continue home Lexapro 20 mg daily, Abilify 2 mg nightly, Lamictal 150 twice daily Type 2 diabetes - on sliding scale insulin, monitor for hypoglycemia Status post left total knee arthroplasty Mild leukocytosis, anticipated outcome of surgery Mild acute blood loss anemia anticipated outcome of surgery -Pain control with oral [place] as needed, IV Dilaudid as needed, ropivacaine for breakthrough pain as needed, monitor for sedation -Lovenox 30 mg SQ every 12 hours for DVT prophylaxis -Senna 8.6 mg twice daily -PT/OT -Ortho surgery note reviewed, discharged today to rehab Patient is medically optimized for discharge. Thank you for allowing us to participate in the care of this pleasant patient. Do not hesitate to contact us with questions. Someone can be reached from the [facility] hospitalist group all hours of the day at [phone] or via [employer]. Objective - Vital Signs Vital signs: Vital Signs Temp 98.7 F 01/19/24 07:12 Pulse 82 01/19/24 07:12 Resp 17 01/19/24 07:12 BP 137/76 01/19/24 07:12 Pulse Ox 94 L 01/19/24 07:12 FiO2 Intake & Output 01/18/24 01/19/24 01/19/24 18:59 06:59 18:59 Intake Total 720 Output Total 1700 450 Balance -980 -450 Intake: Oral 720 Output: Urine 1700 450 Other: Voiding Method Urinal # Voids 2 1 - Labs CBC & Chem 7: 01/18/24 05:10 01/18/24 05:10 Labs: Abnormal Lab Results - Last 24 Hours (Table) 01/18/24 01/18/24 01/19/24 Range/Units 16:55 20:55 05:58 POC Glucose (mg/dL) 164 H 149 H 173 H (70-110) mg/dL 01/19/24 Range/Units 11:42 POC Glucose (mg/dL) 201 H (70-110) mg/dL
== END 2024-01-19 13:06 | DRG 470 ==
LOC: OR 05:42 → OBSVTOIN 09:14 → 4SSUR 09:14
PROVIDERS: ADMIT Orthopaedic Surgery; ATTEND Orthopaedic Surgery
PROC: 0SRD0J9 Replacement of Left Knee Joint with Synthetic Substitute, Cemented, Open Approach (ICD-10-PCS; principal; 2024-01-17 07:30)
DX: M17.12 Unilateral primary osteoarthritis, left knee (principal); I25.10 Atherosclerotic heart disease of native coronary artery without angina pectoris; I10 Essential (primary) hypertension; G47.30 Sleep apnea, unspecified; R41.3 Other amnesia; G89.18 Other acute postprocedural pain; E11.9 Type 2 diabetes mellitus without complications; E78.5 Hyperlipidemia, unspecified; F43.10 Post-traumatic stress disorder, unspecified; F32.A Depression, unspecified; F41.9 Anxiety disorder, unspecified; Z79.899 Other long term (current) drug therapy; Z79.84 Long term (current) use of oral hypoglycemic drugs; Z79.1 Long term (current) use of non-steroidal anti-inflammatories (NSAID)
CPT/HCPCS: 64448; 64999; 80048; 83036; 85025; 85610; 85730